=== PATIENT | female | born 1960 | race Caucasian/White ===

== ENCOUNTER 2020-03-18 12:52 | Emergency (ER) | payer OTHER ==
[~2020-03-18] VITALS: Ht 154.9 cm; Wt 75.7 kg
[2020-03-18 13:06] VITALS: Ht 154.9 cm; Wt 75.7 kg
[2020-03-18 15:14] LABS: BASOPHIL % 0.8 % (0-2); PLATELET COUNT 337 x10^3mcL (130-400)
[2020-03-18 15:15] LABS: RED CELL DISTRIBUTION WIDTH 16.7 % (11.5-14.5)
[2020-03-18 15:25] LABS: CALCIUM 10.6 mg/dL (8.5-10.1); CARBON DIOXIDE 26.8 mmol/L (21-32); CHLORIDE SERUM 99 mmol/L (98-107); CREATININE SERUM 0.8 mg/dL (0.6-1.0); GFR1 > 60 mL/min; GLUCOSE SERUM 101 mg/dL (74-106); POTASSIUM SERUM 3.7 mmol/L (3.5-5.1); SODIUM SERUM 137 mmol/L (136-145)
[2020-03-18 15:28] LABS: AMPHETAMINE QUAL UR NONE DETECTED (See below)
[2020-03-18 15:36] LABS: ALBUMIN 4.1 g/dL (3.4-5.0); ALKALINE PHOSPHATASE 83 U/L (46-116); ALT/SGPT 62 U/L (14-59); AST/SGOT 30 U/L (15-37); BILIRUBIN TOTAL 0.6 mg/dL (0.20-1.00); T4(THYROXINE) 9.2 ug/dL (4.7-13.3)
[2020-03-18 15:38] LABS: TOTAL PROTEIN, SERUM 8.4 g/dL (6.4-8.2)
[2020-03-18 17:25] VITALS: BP 122/86
== END 2020-03-18 17:15 | disposition home or self-care (01) ==
LOC: ED 12:52
PROVIDERS: Emergency Medicine
DX: F41.9 Anxiety disorder, unspecified (principal); G47.00 Insomnia, unspecified
CPT/HCPCS: G0480

== ENCOUNTER 2020-03-20 11:35 | Emergency (ER) | payer OTHER ==
[~2020-03-20] VITALS: Ht 152.4 cm; Wt 74.4 kg
[2020-03-20 11:47] VITALS: Ht 152.4 cm; Wt 74.4 kg
[2020-03-20 13:38] VITALS: BP 146/78
== END 2020-03-20 13:38 | disposition home or self-care (01) ==
LOC: ED 11:35
DX: F41.9 Anxiety disorder, unspecified (principal); I10 Essential (primary) hypertension; E78.5 Hyperlipidemia, unspecified; Z90.49 Acquired absence of other specified parts of digestive tract

== ENCOUNTER 2020-03-21 09:14 | Emergency (ER) | payer OTHER ==
[~2020-03-21] VITALS: Ht 160 cm; Wt 76.2 kg
[2020-03-21 09:29] VITALS: Ht 160 cm; Wt 76.2 kg
[2020-03-21 10:21] VITALS: BP 149/80
== END 2020-03-21 10:21 | disposition home or self-care (01) ==
LOC: ED 09:14
DX: I10 Essential (primary) hypertension (principal); F41.9 Anxiety disorder, unspecified; Z98.890 Other specified postprocedural states

== ENCOUNTER 2020-04-09 00:51 | Emergency (ER) | payer OTHER ==
[~2020-04-09] VITALS: Ht 154.9 cm; Wt 73.5 kg
[2020-04-09 00:57] VITALS: Ht 154.9 cm; Wt 73.5 kg
[2020-04-09 02:08] LABS: microscopic required? NO
[2020-04-09 02:17] LABS: urine erythrocyte NEGATIVE (NEGATIVE)
[2020-04-09 02:18] LABS: BASOPHIL % 0.6 % (0-2); PLATELET COUNT 311 x10^3mcL (130-400); RED CELL DISTRIBUTION WIDTH 16.8 % (11.5-14.5)
[2020-04-09 02:31] LABS: CALCIUM 9.1 mg/dL (8.5-10.1); CARBON DIOXIDE 25.4 mmol/L (21-32); CHLORIDE SERUM 103 mmol/L (98-107); CREATININE SERUM 0.9 mg/dL (0.6-1.0); GFR1 > 60 mL/min; GLUCOSE SERUM 108 mg/dL (74-106); POTASSIUM SERUM 3.6 mmol/L (3.5-5.1); SODIUM SERUM 138 mmol/L (136-145)
[2020-04-09 02:36] LABS: ALBUMIN 3.5 g/dL (3.4-5.0); ALKALINE PHOSPHATASE 77 U/L (46-116); ALT/SGPT 64 U/L (14-59); AST/SGOT 30 U/L (15-37); TOTAL PROTEIN, SERUM 7.3 g/dL (6.4-8.2)
[2020-04-09 03:21] VITALS: BP 115/64
== END 2020-04-09 03:21 | disposition home or self-care (01) ==
LOC: ED 00:51
PROVIDERS: Emergency Medicine
DX: F41.9 Anxiety disorder, unspecified (principal); R42 Dizziness and giddiness; I10 Essential (primary) hypertension
CPT/HCPCS: J8597